=== PATIENT | male | born 1950 | race Caucasian/White ===

== ENCOUNTER → 2017-04-14 | Day surgery (SDC) | payer OTHER ==
[2017-03-19 13:28] VITALS: Ht 168.9 cm; Wt 88.6 kg
[~2017-04-14] VITALS: Ht 168.9 cm; Wt 88.6 kg
[~2017-04-14] MED LIST: LIDOCAINE HCL 2% 2 ML VIAL (20MG/ML) ONE; MIDAZOLAM HCL 1 MG/ML 2ML VIAL ONE; PROPOFOL IV EMULSION 10 MG/ML 20 ML VIAL IV ONE
--- NOTE | 2017-04-14 09:51 | Endo History and Physical ---
History & Physical Date of Service: Apr 14, 2017. Chief Complaint: Screening Referring Physician: Rodney History of Present Illness 66 yo CM who presents for screening colonoscopy. Past Surgical History Hx Cardiac Surgery: No Hx Internal Defibrillator: No Hx Pacemaker: No Hx Abdominal Surgery: No Hx of Implantable Prosthesis: No Hx Post-Op Nausea and Vomiting: No Hx Cancer Surgery: No Hx Thoracic Surgery: No Hx Orthopedic: No Hx Urinary Tract Surgery: No Family History None Social History Smoking Status: Former Smoker Hx Substance Use: No Hx Alcohol Use: Yes (OCC SOCIAL AT HOLIDAYS) Allergies Coded Allergies: No Known Allergies (Unverified , 03/19/17) Current Medications Reported Home Medications Medications Dose Route/Sig Max Daily Dose Days Date Category No Active Prescriptions or Reported Medications Rx Vital Signs Weight (Kilograms): 88.64 Height (Feet): 5 Height (Inches): 6.5 Date Time Temp Pulse Resp B/P (MAP) Pulse Ox O2 Delivery O2 Flow Rate FiO2 04/14/17 09:38 36.5 95 20 158/76 (103) 94 Room Air Physical Exam General Appearance: WD/WN, no apparent distress Respiratory/Chest: Auscultation: breath sounds normal Cardiovascular: Heart Auscultation: RRR Abdomen: Bowel Sounds: normal Inspection & Palpation: soft, non-distended, no tenderness, guarding & rebound Assessment and Plan Impression: 66 yo CM who presents for screening colonoscopy. Plan: Proceed with colonoscopy.
--- NOTE | 2017-04-14 11:09 | Discharge Instructions ---
Endoscopy Patient Instructions Date / Procedure(s) Performed Apr 14, 2017. Colonoscopy Allergy Information Coded Allergies: No Known Allergies (Unverified , 03/19/17) Discharge Date / Findings Apr 14, 2017. Normal colonoscopy Medication Instructions OK to resume all medications today as prescribed Reported Home Medications Medications Dose Route/Sig Max Daily Dose Days Date Category No Active Prescriptions or Reported Medications Rx Provider Instructions Activity Restrictions - No exercising or heavy lifting for 24 hours. - Do not drink alcohol the day of the procedure. - Do not drive a car or operate machinery until the day after the procedure. - Do not make any important decisions or sign important papers in 24 hours after the procedure. Following Day: - Return to full activity which may include returning to work/school. Diet Start your diet with liquids and light foods (jello, soup, juice, toast). Then eat your usual diet if not nauseated. Treatment For Common After Affects For mild abdominal pain, bloating, or excessive gas: - Rest - Eat lightly - Lie on right side Follow-Up Information Follow-up with Rodney as scheduled Anesthesia Information What You Should Know You have had a procedure that required some medicine to reduce anxiety and discomfort. This treatment is called moderate sedation. After receiving the treatment, you may be sleepy, but you will be able to breathe on your own. The effects of the treatment may last for several hours. Follow these instructions along with Activity/Diet recommendations noted above: * Do NOT do anything where dizziness or clumsiness would be dangerous. * Rest quietly at home today, then you can be up and about tomorrow. * Have a responsible person stay with you the rest of today. * You may have had an I.V. today. If so, you may take the dressing off later today. Recommendations Call your doctor if: * Trouble breathing * Continuous vomiting for more than 24 hours * Temperature above 101 degrees * Severe abdominal pain or bloating * Pain not relieved by pain medicine ordered * There is increased drainage or redness from any incision * A large amount of rectal bleeding greater than 2-3 tablespoons. (If you had a polyp/s removed or have hemorrhoids, a small amount of blood - from the rectum is to be expected.) * You have any unanswered questions or concerns. IN THE EVENT OF A SERIOUS EMERGENCY, GO TO THE NEAREST EMERGENCY ROOM Your discharge instructions were prepared by provider Praveen Lawler. Patient Instructions Signature Page Dawit Neal Patient (or Guardian) Signature/Date: I have read and understand the instructions given to me by my caregivers. Caregiver/RN/Doctor Signature/Date: The above-named patient and/or guardian has received patient instructions on this date. + Original Patient Signature Page (only) stays with chart. Please make copy for patient.
--- NOTE | 2017-04-14 11:15 | Anesthesiology Progress Note ---
Anesthesia Post Op Note Date & Time Apr 14, 2017 at 11:15 Vital Signs Vital Signs Past 12 Hours Date Time Temp Pulse Resp B/P (MAP) Pulse Ox O2 Delivery O2 Flow Rate FiO2 04/14/17 09:38 36.5 95 20 158/76 (103) 94 Room Air Notes Mental Status: alert / awake / arousable, participated in evaluation Pt Amnestic to Procedure: Yes Nausea / Vomiting: adequately controlled Pain: adequately controlled Airway Patency, RR, SpO2: stable & adequate BP & HR: stable & adequate Hydration State: stable & adequate Anesthetic Complications: no major complications apparent
--- NOTE | 2017-04-14 11:17 | GI REPORT ---
Procedure Date: 04/14/2017 10:49 AM Procedure: Colonoscopy Indications: Screening for colorectal malignant neoplasm Medicines: Monitored Anesthesia Care Complications: No immediate complications. Estimated Blood Loss: Estimated blood loss: none. Procedure: Pre-Anesthesia Assessment: - Prior to the procedure, a History and Physical was performed, and patient medications and allergies were reviewed. The patient's tolerance of previous anesthesia was also reviewed. The risks and benefits of the procedure and the sedation options and risks were discussed with the patient. All questions were answered, and informed consent was obtained. Prior Anticoagulants: The patient has taken no previous anticoagulant or antiplatelet agents. ASA Grade Assessment: I - A normal, healthy patient. After reviewing the risks and benefits, the patient was deemed in satisfactory condition to undergo the procedure. After I obtained informed consent, the scope was passed under direct vision. Throughout the procedure, the patient's blood pressure, pulse, and oxygen saturations were monitored continuously. The scope was introduced through the anus and advanced to the terminal ileum. The colonoscopy was performed without difficulty. The patient tolerated the procedure well. The quality of the bowel preparation was good. The terminal ileum, ileocecal valve, appendiceal orifice, and rectum were photographed. Findings: The perianal and digital rectal examinations were normal. The entire examined colon appeared normal. Impression: - The entire examined colon is normal. - No specimens collected. Recommendation: - Resume previous diet. - Continue present medications. - Repeat colonoscopy in 10 years for surveillance. - Return to primary care physician as previously scheduled. Praveen Lawler DO 04/14/2017 11:16:55 AM This report has been signed electronically. Note Initiated On: 04/14/2017 10:49 AM I attest to the content of the Intraoperative Record and orders documented therein, exceptions below
[2017-04-14 11:42] VITALS: BP 130/89; PULSE 53; O2SAT 94
== END | disposition home or self-care (01) ==
LOC: C.GI 09:18
PROVIDERS: ATTEND Internal Medicine
DX: Z12.11 Encounter for screening for malignant neoplasm of colon (principal); Z87.891 Personal history of nicotine dependence

== ENCOUNTER → 2017-07-18 | Outpatient (CLI) | payer OTHER | END | disposition home or self-care (01) | LOC: C.LABPBG 07:46 | PROVIDERS: ATTEND Family Medicine | DX: Z00.00 Encounter for general adult medical examination without abnormal findings (principal); Z11.59 Encounter for screening for other viral diseases ==

== ENCOUNTER 2024-11-03 16:19 | Observation (INO) ==
--- NOTE | 2024-11-03 16:35 | Emergency Department Note ---
Impression & Plan Dizziness, Ataxia ED Provider Note NAME: CHAUNCEY FRENCH AGE: 74 SEX: M : 1950 ARRIVES VIA: Walk-In INFORMANT: Patient, ED PROVIDER(S): Marito Jewell DO CHIEF COMPLAINT: Dizziness HPI: The patient is a 74-year-old male who presented to the emergency department the request of primary care physician for an evaluation of dizziness. Patient started having issues yesterday with dizziness. He feels off balance. He feels that things are moving as well. He denies having any headache or unilateral weakness. He denies having any trauma. The patient states has been compliant with his outpatient medications. He denies having any fevers or chills. ROS: See above HPI for pertinent positives & negatives. A total of 10 systems reviewed and were otherwise negative. PAST MEDICAL HISTORY: See Below PAST SURGICAL HISTORY: See Below FAMILY HISTORY: See Below SOCIAL HISTORY: See Below HOME MEDICATIONS: See Below ALLERGIES: See Below VITALS: See Below PHYSICAL EXAMINATION: GENERAL: Patient is awake alert in no acute distress patient is resting comfortably and showing no signs of anxiety EYES: The conjunctivae are clear. The pupils are round and reactive. EARS, NOSE, MOUTH AND THROAT: The nose is without any evidence of any deformity. NECK: The neck is nontender and supple. RESPIRATORY: Normal respiratory effort is noted there is no evidence of wheezing rhonchi or rales CARDIOVASCULAR: Regular rate and rhythm noted there no murmurs rubs or gallops normal S1 normal S2. GASTROINTESTINAL: The abdomen is soft. Abdomen is nontender. MUSCULOSKELETAL/EXTREMITIES: There is no evidence of gross deformity full range of motion is noted in the hips and shoulders. SKIN: There is no obvious evidence of any rash. There are no petechiae, pallor or cyanosis noted. NEUROLOGIC: Patient is awake alert and oriented x3 strength is symmetric patellar reflexes are 2+ bilaterally MEDICAL DECISION MAKING: The patient is a 74-year-old male who presented to the emergency department for an evaluation of dizziness. The patient was seen by his primary care physician and sent to the emergency department for further evaluation. The patient did not have any focal neurologic deficits but on ambulation he did have instability. I discussed patient's laboratory and radiographic studies with him. I discussed possible causes of this which could include central nervous system causes as well as peripheral causes. Ultimately the patient was not found to have any acute process on CT or CT angiography other than a possible small aneurysm which I do not feel is consistent with the patient's symptoms. He may require further workup for this and I discussed this with him. Ultimately the patient was able to ambulate but had instability. He was not comfortably discharged home. This reason I discussed his condition with the on- call [facility] hospitalist. Triage Nursing notes reviewed. Prior medical records reviewed Vital Signs: reviewed and remarkable for elevated blood pressure. Differential diagnosis: Benign positional vertigo, dehydration, hypovolemia, anemia, tumor, infection, hypoglycemia, electrolyte abnormalities, cardiac sources, intracerebral event, toxicologic, neurologic, as well as other pathologies. ER treatment provided: See below Diagnostics interpreted by me: ECG: EKG was obtained in the emergency department. My interpretation is normal sinus rhythm at 70 bpm. There is no ectopy. There was no acute ST segment abnormalities noted. This was compared to a tracing from February 01, 2022. No changes were noted. Cardiac Monitoring: An order was placed for continuous cardiac monitoring. The monitor shows a rate of 60 bpm with sinus rhythm. Laboratory studies: As stated above and show below. Imaging studies: See below. Radiographic imaging was reviewed by myself Consultation(s): Dr. Sims was notified about the patient. She will evaluate the patient in the emergency department for further management and disposition. Past Med/Surg History Problem List (Updated 11/03/24 @ 20:13 by Marito Jewell DO) Ataxia (Acute) Dizziness (Acute) Urinary hesitancy Prostate cancer (Chronic 04/26/22) Dyslipidemia (Chronic) Family history of coronary artery disease (Chronic) Former smoker (Chronic) Hypertension (Chronic) Spermatocele of epididymis, multiple COPD (chronic obstructive pulmonary disease) Situational depression (Chronic) Elevated PSA (Chronic) Medical History Spermatocele Arthritis Dyslipidemia Essential hypertension Surgical History History of hydrocelectomy 02/11/22 H/O prostate biopsy History of colonoscopy History of tooth extraction S/P tonsillectomy Family History Father Myocardial infarction Brother Prostate cancer Coronary heart disease Other No family history of adverse response to anesthesia Denies family history of Ovarian cancer Breast cancer Colorectal cancer Social History Smoking Status: Former smoker Tobacco Type: Cigarettes Age Started Using Tobacco: 22; Age Quit Using Tobacco: 64; packs per day: 0.5; Cigarettes Per Day: 20; Second Hand Exposure: Yes (CURRENT/ SMOKES); Do You Dip or Chew Tobacco: Yes (uses 2x a week ); Hx Alcohol Use: No (socially ) Hx Substance Use: No Preferred Language: Argentine Communication Ability: Effective Visual Impairment: No Limitations Hearing Ability: Normal Mixing Picker Tender Required: No Beliefs That Will Affect Care: None marital status: Current Living Situation: Spouse current occupational status: employed 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 [employer] How many Children do You have: 2 Feels Safe at Home: Yes Childhood Exposure to Second-Hand Smoke: No Diet: regular caffeine: Yes during the past year weight has: remained stable Dental Care, Regularly: No Physical Activity Frequency: Daily Seatbelt Use: always Sunscreen Use: No Assistive Devices: Denture - Upper, Denture - Lower and Glasses Allergies Allergies Allergy/AdvReac Type Severity Reaction Status Date / Time No Known Drug Allergies Allergy Verified 11/03/24 15:24 Home Meds Home Medications Medication Instructions Recorded Confirmed calcium carbonate 260 mg PO DAILY 07/19/22 11/03/24 cholecalciferol (vitamin D3) 25 25 mcg PO DAILY 07/19/22 11/03/24 mcg (1,000 unit) capsule Previous Rx's Medication Instructions Recorded citalopram 40 mg tablet 40 mg PO DAILY #90 tabs 03/17/24 atorvastatin 40 mg tablet (Lipitor) 40 mg PO QPM #90 tabs 05/26/24 losartan 100 mg tablet See Rx Instructions .Route 06/24/24 .COMPLEX #90 tabs umeclidinium 62.5 mcg/actuation See Rx Instructions .Route 08/15/24 blister powder for inhalation .COMPLEX #90 ea (Incruse Ellipta) Results & Data (ED) Vital Signs Vital Signs - 24 hr 11/03/24 16:26 11/03/24 16:26 11/03/24 16:32 Temperature 36.6 C Temperature Source Oral Pulse Rate 70 Pulse Rate [Apical] 69 Respiratory Rate 25 H 14 Respiratory Effort / Characteristics Non-Labored Spontaneous Non-Labored Spontaneous Respiratory Depth Normal Normal Blood Pressure 149/75 H Blood Pressure [Left Arm] 138/79 Blood Pressure Mean 99 Blood Pressure Mean [Left Arm] 98 Blood Pressure Position [Left Arm] Semi-fowlers Pulse Oximetry 93 93 94 Oxygen Delivery Method Room Air Room Air Room Air Sepsis Recent Fever Within 48 Hours No Sepsis New/Unexplained Change in Mental Status N/A Sepsis Action Taken by Nursing No Action Required 11/03/24 16:41 11/03/24 18:00 11/03/24 18:34 Temperature Temperature Source Pulse Rate 69 Pulse Rate [Apical] 63 68 Respiratory Rate 19 19 Respiratory Effort / Characteristics Non-Labored Spontaneous Non-Labored Spontaneous Respiratory Depth Normal Normal Blood Pressure Blood Pressure [Left Arm] 159/92 H 158/87 H Blood Pressure Mean Blood Pressure Mean [Left Arm] 114 110 Blood Pressure Position [Left Arm] Semi-fowlers Semi-fowlers Pulse Oximetry 90 96 Oxygen Delivery Method Room Air Room Air Sepsis Recent Fever Within 48 Hours Sepsis New/Unexplained Change in Mental Status Sepsis Action Taken by Detention Medications Current Medication List: was personally reviewed by me Laboratory Data Attestation: I reviewed the patient's lab results. 11/03/24 16:33 11/03/24 16:33 Lab Results 11/03/24 Range/Units 16:33 WBC 10.51 (4.8-10.8) K/ul RBC 5.50 (4.70-6.10) M/uL Hgb 14.7 (14.0-18.0) g/dl Hct 45.4 (42.0-52.0) % MCV 82.5 (80.0-100.0) fL MCH 26.7 (25.0-34.0) pg MCHC 32.4 (32.0-36.0) g/dL RDW Std Deviation 42.3 (36.4-46.3) fL RDW Coeff of Praveen 14.2 (11.5-14.5) % Plt Count 274 (130-400) K/uL MPV 10.0 (9.4-12.4) fL Immature Gran % (Auto) 2.9 % Neut % (Auto) 64.2 % Lymph % (Auto) 18.3 % Esmeralda % (Auto) 10.0 % Eos % (Auto) 3.6 % Baso % (Auto) 1.0 % Neut # (Auto) 6.75 H (1.40-6.50) K/uL Lymph # (Auto) 1.92 (1.20-3.40) K/uL Esmeralda # (Auto) 1.05 H (0.11-0.59) K/uL Eos # (Auto) 0.38 (0.00-0.50) K/uL Baso # (Auto) 0.10 (0.00-0.20) K/uL Immature Gran # (Auto) 0.31 H (0.01-0.20) K/uL PT 10.5 (9.0-12.0) Seconds INR 1.0 (0.9-1.1) APTT 29 (21-31) Seconds PTT Ratio 1.1 Sodium 138 (136-145) mmol/L Potassium 4.1 (3.5-5.1) mmol/L Chloride 107 (98-107) mmol/L Carbon Dioxide 24 (21-32) mmol/L Anion Gap 7 (3-11) BUN 17 (6-23) mg/dl Creatinine 0.93 (0.6-1.4) mg/dl Est Cr Clr Drug Dosing 74.3 ml/min eGFR 86.70 BUN/Creatinine Ratio 18.3 (10-20) Glucose 103 H (70-99(Fasting)) mg/dl Calcium 9.0 (8.6-10.3) mg/dl Magnesium 2.0 (1.7-2.4) mg/dl Total Bilirubin 0.4 (0.2-1.0) mg/dl AST 15 (13-39) U/L ALT 10 (7-52) U/L Alkaline Phosphatase 89 (34-104) U/L Troponin I High Sens 4.5 (0-20) pg/ml Total Protein 6.8 (6.0-8.3) gm/dl Albumin 3.9 (3.4-5.0) gm/dl Globulin 2.9 (2.5-4.0) gm/dl Albumin/Globulin Ratio 1.3 (0.9-2) Administered Medications Discontinued Medications Ioversol (Optiray 320 125ml) 115 ml IV ONCE ONE Stop: 11/03/24 17:20 Last Admin: 11/03/24 17:19 Dose: 115 ml Documented By: ALEXANDRIA Meclizine HCl (Meclizine Hcl 25 Mg Tab) 25 mg PO NOW STA Stop: 11/03/24 18:25 Last Admin: 11/03/24 18:33 Dose: 25 mg Documented By: RANDI Imaging Data Attestation: I personally reviewed and interpreted this imaging study as follows: My Impression: 1 view chest x-ray was obtained in the emergency department. My interpretation is no free air or definite infiltrate, final report below. Radiologist's Impression: Chest X-Ray 11/03/24 16:32 EXAM: Portable AP chest radiograph TECHNIQUE: AP portable radiograph of the chest was obtained. INDICATION: Shortness of breath Comparison: None FINDINGS: LINES and TUBES: None CARDIOVASCULAR: Cardiac silhouette is mildly enlarged in size. LUNGS/PLEURA: No focal consolidation identified. Chronic interstitial lung changes. No significant pleural fluid. No discernible pneumothorax. OSSEOUS/OTHER: No displaced acute osseous process identified. IMPRESSION: Mild cardiac silhouette enlargement. Otherwise no significant cardiopulmonary process identified. Electronically signed by Robel Romero 11-03-2024 5:[address] 11/03/24 16:32 Clinical History: Dizziness Technique: Axial computed tomography images were obtained of the brain from the vertex to the skull base without intravenous contrast. Findings: There is no sign of intracranial hemorrhage. There is normal valentine-white matter differentiation with no sign of acute or old infarction. No midline shift or other form of herniation is identified. There is no hydrocephalus. No obvious mass lesion is seen on this noncontrast examination. The visualized portions of the orbits and paranasal sinuses appear unremarkable. 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 No definite stenosis is seen of the anterior, middle, or posterior cerebral artery circulations. Posterior communicating arteries are present bilaterally, right larger than left. The visualized vertebral arteries and the basilar artery appear unremarkable Impression: 1. 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 Conventional angiography could be considered for confirmation 2. No definite stenosis of the intracranial arteries Electronically signed by Tomas Coley 11-03-2024 5:45 PM Neck CTA 11/03/24 16:32 Technique: Axial computed tomography images were obtained of the neck after the administration of intravenous contrast according to the CT angiogram protocol Findings: No stenosis is seen in the common carotid arteries bilaterally. There is plaque within the carotid bulbs bilaterally, without significant stenosis. There are mild stenoses of the proximal internal carotid arteries bilaterally, with 30-40% diameter narrowing. There is mild plaque in the proximal left external carotid artery, without significant stenosis The vertebral arteries are patent bilaterally with no significant stenosis seen. 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 Electronically signed by Tomas Coley 11-03-2024 5:50 PM Discharge Plan Visit Data Chief Complaint: Dizziness Stated Complaint: DIZZINESS ED Provider: Marito Jewell Discharge Problem: Dizziness, Ataxia Patient Disposition: Being Evaluated by Hospitalist Condition: Fair Forms Stand Alone Forms: [facility] Prescriptions Prescriptions: No Action citalopram 40 mg tablet 40 mg PO DAILY Qty: 90 3RF atorvastatin [Lipitor] 40 mg tablet 40 mg PO QPM Qty: 90 3RF Incruse Ellipta 62.5 mcg/actuation blister with device See Rx Instructions .ROUTE .COMPLEX Qty: 90 3RF Dose Instruction: 1 INHALATION INHALED DAILY Rx Instructions: 1 INHALATION INHALED DAILY cholecalciferol (vitamin D3) 25 mcg (1,000 unit) capsule 25 mcg PO DAILY calcium carbonate 260 mg calcium (648 mg) tablet 260 mg PO DAILY losartan 100 mg tablet See Rx Instructions .ROUTE .COMPLEX Qty: 90 3RF Dose Instruction: TAKE 1 TABLET BY MOUTH EVERY DAY Rx Instructions: TAKE 1 TABLET BY MOUTH EVERY DAY Referrals Referrals: Sahara Stevens MD [Primary Care Provider] -
[2024-11-03 16:54] LABS: Hematocrit (blood only) 45.4 % (42.0-52.0); Hemoglobin 14.7 g/dl (14.0-18.0); Immature Granulocytes # (auto) 0.31 K/uL (0.01-0.20); Immature Granulocytes % (auto) 2.9 %; Mean Corpuscular Hemoglobin 26.7 pg (25.0-34.0); Mean Corpuscular Volume 82.5 fL (80.0-100.0); Platelet Count 274 K/uL (130-400); RDW Standard Deviation 42.3 fL (36.4-46.3); Red Blood Count 5.50 M/uL (4.70-6.10); White Blood Count 10.51 K/ul (4.8-10.8)
[2024-11-03 17:14] LABS: Alanine Aminotransferase 10.0 U/L (7-52); Albumin Globulin Ratio 1.3 (0.9-2); Alkaline Phosphatase 89.0 U/L (34-104); Anion Gap 7.0 (3-11); Bilirubin,Total 0.4 mg/dl (0.2-1.0); Blood Urea Nitrogen 17.0 mg/dl (6-23); Calcium 9.0 mg/dl (8.6-10.3); Carbon Dioxide 24.0 mmol/L (21-32); Chloride 107.0 mmol/L (98-107); Creatinine Clr Calc Pharmacy 74.3 ml/min; Globulin 2.9 gm/dl (2.5-4.0); Glucose 103.0 mg/dl (70-99(Fasting)); Magnesium 2.0 mg/dl (1.7-2.4); Potassium 4.1 mmol/L (3.5-5.1); Sodium 138.0 mmol/L (136-145); Total Protein 6.8 gm/dl (6.0-8.3)
[2024-11-03] MEDS: OPTIRAY 320 125ml IV ONE (17:19)
[2024-11-03 17:25] LABS: INR 1.0 (0.9-1.1); Partial Thromboplastin Time 29 Seconds (21-31); Prothrombin Time 10.5 Seconds (9.0-12.0)
--- NOTE | 2024-11-03 17:31 | XRay Report ---
EXAM: Portable AP chest radiograph TECHNIQUE: AP portable radiograph of the chest was obtained. INDICATION: Shortness of breath Comparison: None FINDINGS: LINES and TUBES: None CARDIOVASCULAR: Cardiac silhouette is mildly enlarged in size. LUNGS/PLEURA: No focal consolidation identified. Chronic interstitial lung changes. No significant pleural fluid. No discernible pneumothorax. OSSEOUS/OTHER: No displaced acute osseous process identified. IMPRESSION: Mild cardiac silhouette enlargement. Otherwise no significant cardiopulmonary process identified. Electronically signed by Robel Romero 11-03-2024 5:30 PM
--- NOTE | 2024-11-03 17:41 | CT Scan Report ---
Clinical History: Dizziness Technique: Axial computed tomography images were obtained of the brain from the vertex to the skull base without intravenous contrast. Findings: There is no sign of intracranial hemorrhage. There is normal valentine-white matter differentiation with no sign of acute or old infarction. No midline shift or other form of herniation is identified. There is no hydrocephalus. No obvious mass lesion is seen on this noncontrast examination. The visualized portions of the orbits and paranasal sinuses appear unremarkable. The mastoid air cells appear clear Impression: Unremarkable noncontrast CT of the brain Electronically signed by Tomas Coley 11-03-2024 5:41 PM
--- NOTE | 2024-11-03 17:46 | CT Scan Report ---
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 No definite stenosis is seen of the anterior, middle, or posterior cerebral artery circulations. Posterior communicating arteries are present bilaterally, right larger than left. The visualized vertebral arteries and the basilar artery appear unremarkable Impression: 1. 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 Conventional angiography could be considered for confirmation 2. No definite stenosis of the intracranial arteries Electronically signed by Tomas Coley 11-03-2024 5:45 PM
--- NOTE | 2024-11-03 17:51 | CT Scan Report ---
Technique: Axial computed tomography images were obtained of the neck after the administration of intravenous contrast according to the CT angiogram protocol Findings: No stenosis is seen in the common carotid arteries bilaterally. There is plaque within the carotid bulbs bilaterally, without significant stenosis. There are mild stenoses of the proximal internal carotid arteries bilaterally, with 30-40% diameter narrowing. There is mild plaque in the proximal left external carotid artery, without significant stenosis The vertebral arteries are patent bilaterally with no significant stenosis seen. 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 Electronically signed by Tomas Coley 11-03-2024 5:50 PM
[2024-11-03] MEDS: MECLIZINE HCL 25 MG TAB PO STA (18:33)
--- NOTE | 2024-11-03 19:32 | History & Physical Report ---
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 in ED. 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 No neuro deficits, no h/o this happening before. No falls. Pt was made aware of the 3mm brain aneurysm identified on head CTA at time of admission. No h/o arrythmia. R/o CVA. - CBC without leukocytosis, stable H&H; CMP grossly unremarkable; Mg 2.0; Trop 4.5- CBC, BMP am - TSH pending - Lipid panel am; On atorvastatin 40mg -- continue - EKG NSR @ 70 bpm - CXR mild cardiac silhouette enlargement - Head CT unremarkable - Head CTA suspected small 3 mm aneurysm of MCA branch L orbital apex and L te mporal lobe - Neck CTA mild stenosis of proximal ICA bilaterally - Echo 2018 - pending repeat - MRI w/ and w/o contrast pending (h/o prostate CA) - Consider PT/OT consult - Consider neuro consult pending MRI #HTN- Will allow some permissive HTN but control to ~ SBP < 160, pending MRI; Losartan - continue #HLD- Pending lipids am; Atorvastatin - continue #COPD- Previous smoker, quit at 64 y/o; O2 prn; Incruse Ellipta - continue #Prostate CA- Bx confirmed dx 2022, s/p radiation; follows with urology and oncology; No LUTS at admission. #Situational depression- Stable mood; Citalopram - continue Lindsay () - [phone] Dispo: Obs, PCU VTE Prophylaxis: SCDs This document was dictated utilizing [email or web address]. Please excuse any grammatical errors that may be secondary to use of this software. 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 He had walked to his kitchen and when he bent down to grab orange juice from the fridge, he suddenly felt like the fridge was falling towards him. He was able to get himself to a normal standing position and sit down, recovering from this episode within a few minutes. He took his daily medications and then went to work that day. The only other symptom he experienced throughout the day was some lightheadedness at times, but this had resolved by the time he was home and he felt back to normal health by the evening. The morning of arrival, he was in bed when he felt lightheaded and dizzy. He went to stand up and his symptoms worsened. After he started walking the symptoms subsided slightly, but were still present. He describes the feeling as being "off balanced" and not as if the room is spinning. He also was experien cing lightheadedness, specifically when walking or going from sitting to walking. The symptoms have not completely resolved as they had the day prior. His , Lindsay, states that at one point he felt that his "brain would not tell his legs what to do." He denies any extremity weakness, numbness, or tingling. He has a generalized feeling of weakness starting today. Denies headache, vision changes, slurred speech, facial droop, or difficulties with finding words. He is not leaning to one side more than the other. No tinnitus or recent URI symptoms. He does experience cough and minimal phlegm production at his baseline, and has a history of COPD. He denies recent tick bites or exposures. Denies chest pain, SOB, palpitations, abdominal pain, N/V/D/C, LUTS, URI symptoms, numbness/tingling, F/C, syncope, or falls. He has never had this happen before. No known history of Afib/Aflutter. Notes that his mother has a history of a brain aneurysm. His notes that the paitent's blood pressures are usually 110s/80s, but that they have been more elevated today. He took all of his am medications. Has not eaten more than a few crackers today. 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 in ED. Please see Dr. Sims's attestation for adjustments/additions to treatment plan. Allergies Allergy/AdvReac Type Severity Reaction Status Date / Time No Known Drug Allergies Allergy . Verified 11/03/24 20:20 Home Medications Medication Instructions Recorded Confirmed Type citalopram 40 mg tablet 40 mg PO DAILY #90 tabs 03/17/24 11/03/24 Rx atorvastatin 40 mg tablet (Lipitor) 40 mg PO QPM #90 tabs 05/26/24 11/03/24 Rx calcium carbonate (Calcium 600) 600 mg PO QAM 11/03/24 11/03/24 History cholecalciferol (vitamin D3) 50 50 mcg PO QAM 11/03/24 11/03/24 History mcg (2,000 unit) tablet losartan 100 mg tablet 100 mg PO QAM 11/03/24 11/03/24 History umeclidinium 62.5 mcg/actuation 1 inh inhalation DAILY 11/03/24 11/03/24 History blister powder for inhalation (Incruse Ellipta) Past Med/Surg History Problem List Ataxia (Acute) Dizziness (Acute) Urinary hesitancy Prostate cancer (Chronic 04/26/22) Dyslipidemia (Chronic) Family history of coronary artery disease (Chronic) Former smoker (Chronic) Hypertension (Chronic) Spermatocele of epididymis, multiple COPD (chronic obstructive pulmonary disease) Situational depression (Chronic) Elevated PSA (Chronic) Medical History Spermatocele Arthritis Dyslipidemia Essential hypertension Surgical History History of hydrocelectomy 02/11/22 H/O prostate biopsy History of colonoscopy History of tooth extraction S/P tonsillectomy Family History Father Myocardial infarction Brother Prostate cancer Coronary heart disease Other No family history of adverse response to anesthesia Denies family history of Ovarian cancer Breast cancer Colorectal cancer Social History Smoking Status: Former smoker Tobacco Type: Cigarettes Age Started Using Tobacco: 22; Age Quit Using Tobacco: 64; packs per day: 0.5; Cigarettes Per Day: 20; Second Hand Exposure: Yes (CURRENT/ SMOKES); Do You Dip or Chew Tobacco: Yes (uses 2x a week ); Hx Alcohol Use: No (socially ) Hx Substance Use: No Preferred Language: Bermudian Communication Ability: Effective Visual Impairment: No Limitations Hearing Ability: Normal Bundle Tier Required: No Beliefs That Will Affect Care: None marital status: Current Living Situation: Spouse current occupational status: employed 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 [employer] How many Children do You have: 2 Feels Safe at Home: Yes Childhood Exposure to Second-Hand Smoke: No Diet: regular caffeine: Yes during the past year weight has: remained stable Dental Care, Regularly: No Physical Activity Frequency: Daily Seatbelt Use: always Sunscreen Use: No Assistive Devices: Denture - Upper, Denture - Lower and Glasses Review of Systems Review of Systems: All systems reviewed & are unremarkable except as noted in Subjective Physical Exam Physical Exam: General: No acute distress Skin: Warm and dry Head: Normocephalic, atraumatic Eyes: PERRL, conjunctivae clear, sclera non-icteric; wearing glasses ENT: External ear and ear canal without swelling; nose atraumatic; good dentition, tongue normal appearance, pharynx normal Neck: Supple, no LAD Cardio: RRR, no M/G/R, S1 and S2 normal Resp: No respiratory distress, Lungs CTA in all lobes bilaterally, no wheezes, rales, or rhonchi Abdomen: Soft, symmetric, nontender; No masses or hepatosplenomegaly; Bowel sounds normoactive MSK: No deformities; pulses palpable and equal; no edema. Neuro: II- PERRL, no VF deficits III, IV, - EOMs intact, no deviation, no nystagmus V- Normal sensation in all locations VII- No asymmetry, no nasolabial fold flattening VIII- Normal hearing to speech IX, X- Normal palatal elevation, no ulnar deviation XI- 5/5 head turn + shoulder shrug bilaterally XII- Midline tongue protrusion Motor: 5/5 strength throughout BUE/BLE; no pronator drift Reflexes: WNL throughout, no clonus Sensory: Normal sensation throughout, no hemineglect Coordination: Normal [id number], no tremor Gait: Unable to asses at admission Psych: Appropriate mood and affect; good judgement and insight. , Lindsay, is present in room at time of visit. Results & Data Results & Data Vital Signs (Past 12 Hours) Vital Signs Temp Pulse Pulse Resp BP BP Pulse Ox 11/03/24 18:34 68 19 158/87 H 96 11/03/24 18:00 63 19 159/92 H 90 11/03/24 16:41 69 11/03/24 16:32 69 14 138/79 94 11/03/24 16:26 93 11/03/24 16:26 36.6 C 70 25 H 149/75 H 93 O2 Del Method 11/03/24 18:34 Room Air 11/03/24 18:00 Room Air 11/03/24 16:41 11/03/24 16:32 Room Air 11/03/24 16:26 Room Air 11/03/24 16:26 Room Air Laboratory Results 11/03/24 16:33 WBC 10.51 RBC 5.50 Hgb 14.7 Hct 45.4 MCV 82.5 MCH 26.7 MCHC 32.4 RDW Std Deviation 42.3 RDW Coeff of Praveen 14.2 Plt Count 274 MPV 10.0 Immature Gran % (Auto) 2.9 Neut % (Auto) 64.2 Lymph % (Auto) 18.3 Pitt % (Auto) 10.0 Eos % (Auto) 3.6 Baso % (Auto) 1.0 Neut # (Auto) 6.75 H Lymph # (Auto) 1.92 Pitt # (Auto) 1.05 H Eos # (Auto) 0.38 Baso # (Auto) 0.10 Immature Gran # (Auto) 0.31 H PT 10.5 INR 1.0 APTT 29 PTT Ratio 1.1 Sodium 138 Potassium 4.1 Chloride 107 Carbon Dioxide 24 Anion Gap 7 BUN 17 Creatinine 0.93 Est Cr Clr Drug Dosing 74.3 eGFR 86.70 BUN/Creatinine Ratio 18.3 Glucose 103 H Calcium 9.0 Magnesium 2.0 Total Bilirubin 0.4 AST 15 ALT 10 Alkaline Phosphatase 89 Troponin I High Sens 4.5 Total Protein 6.8 Albumin 3.9 Globulin 2.9 Albumin/Globulin Ratio 1.3 Diagnostic Findings Chest X-Ray 11/03/24 16:32 EXAM: Portable AP chest radiograph TECHNIQUE: AP portable radiograph of the chest was obtained. INDICATION: Shortness of breath Comparison: None FINDINGS: LINES and TUBES: None CARDIOVASCULAR: Cardiac silhouette is mildly enlarged in size. LUNGS/PLEURA: No focal consolidation identified. Chronic interstitial lung changes. No significant pleural fluid. No discernible pneumothorax. OSSEOUS/OTHER: No displaced acute osseous process identified. IMPRESSION: Mild cardiac silhouette enlargement. Otherwise no significant cardiopulmonary process identified. Electronically signed by Robel Romero 11-03-2024 5:[address] 11/03/24 16:32 Clinical History: Dizziness Technique: Axial computed tomography images were obtained of the brain from the vertex to the skull base without intravenous contrast. Findings: There is no sign of intracranial hemorrhage. There is normal valentine-white matter differentiation with no sign of acute or old infarction. No midline shift or other form of herniation is identified. There is no hydrocephalus. No obvious mass lesion is seen on this noncontrast examination. The visualized portions of the orbits and paranasal sinuses appear unremarkable. 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 No definite stenosis is seen of the anterior, middle, or posterior cerebral artery circulations. Posterior communicating arteries are present bilaterally, right larger than left. The visualized vertebral arteries and the basilar artery appear unremarkable Impression: 1. 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 Conventional angiography could be considered for confirmation 2. No definite stenosis of the intracranial arteries Electronically signed by Tomas Coley 11-03-2024 5:45 PM Neck CTA 11/03/24 16:32 Technique: Axial computed tomography images were obtained of the neck after the administration of intravenous contrast according to the CT angiogram protocol Findings: No stenosis is seen in the common carotid arteries bilaterally. There is plaque within the carotid bulbs bilaterally, without significant stenosis. There are mild stenoses of the proximal internal carotid arteries bilaterally, with 30-40% diameter narrowing. There is mild plaque in the proximal left external carotid artery, without significant stenosis The vertebral arteries are patent bilaterally with no significant stenosis seen. 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 Electronically signed by Tomas Coley 11-03-2024 5:50 PM Medications Administered Meclizine 25 mg p.o. ECG Additional Comments: NSR 70 bpm, PA 152, QRS 78, QT/QTc 426/460, PRT 34/-12/15 Code Status & VTE Plan Code Status Full Supervising Physician Co-Signing Physician Notes Patient seen and examined in room 239-2, chart reviewed, case discussed with JABIER Lieberman and I agree with the assessment and plan as above. Patient is a 74yo male with history of HTN, COPD, HLP and Prostate cancer presenting with dizziness that started prior to arrival. On exam he is afebrile, mildly hypertensive otherwise HD stable Skin - no rash HEENT - MMM, neck supple Heart - +S1/S2, regular, no m/r/g Lungs - CTA anteriorly Abd - soft, NT/ND Ext - no edema Neuro - no focal deficits, no nystagmus appreciated, no corrective saccade, negative test of skew Labs and images reviewed CTA with small aneurysm 3mm noted at MCA - patient with no prior history Assessment/Plan -MRI ordered to assess for possible CVA -Check 2D echo -PT/OT evaluation -BP control -Serial followup for small aneurysm -Remainder as above PG Care Time/CCT Total # of Minutes Spent Total Time Spent with Patient: Total time spent is greater than 50% in coordination of care (as documented) at patient's floor/unit and/or counseling patient: Coding Level of Care Code 18777 INT INP/OBS CARE MIN Diagnoses Dizziness R42
[2024-11-03] MEDS ORDERED: POLYETHYLENE (MIRALAX) 17 GM PACK PO PRN (20:57)
[2024-11-03] MEDS ORDERED: ONDANSETRON INJ 2 MG/ML 2 ML VIAL IV PRN (20:57)
[2024-11-03] MEDS ORDERED: MELATONIN 3 MG TAB PO PRN (20:57)
[2024-11-03 21:24] LABS: Thyroid Stimulating Hormone 1.309 uIu/ml (0.300-4.500)
[2024-11-03] MEDS: GADOBUTROL 65ML VIAL IV ONE (21:53)
[2024-11-03] MEDS: ATORVASTATIN 40 MG TAB PO SCH (21:59)
--- NOTE | 2024-11-03 23:27 | Magnetic Resonance Report ---
Exam(s): MRI HEAD W/WO Contrast EXAM: MR Head Without and With Intravenous Contrast CLINICAL HISTORY: Reason for exam: Dizziness. TECHNIQUE: Magnetic resonance images of the head/brain without and with intravenous contrast in multiple planes. CONTRAST: Contrast must be dictated COMPARISON: CT head: 11/03/2024 FINDINGS: Brain: There is no restricted diffusion to suggest acute infarction/acute ischemia. There is no intraparenchymal mass, mass- effect or midline shift of structures noted. No abnormal intracranial enhancement. No abnormal extra-axial fluid collections are seen. Age-related mild/moderate cerebral atrophy with widening of the extra- axial spaces and ventricular dilatation. FLAIR imaging demonstrates scattered subcortical multifocal/periventricular signal hyperintensity, commonly seen with increasing age and nonspecific. Typically attributes to sequela of chronic microvascular disease. No ventriculomegaly. The basal cisterns are patent. Normal void signal is present within the intracranial carotid and basilar arteries. No tonsillar ectopia. Bones/joints: Grossly unremarkable.. Sinuses: Unremarkable as visualized. . Mastoid air cells: No evidence of active disease. Orbits: Unremarkable as visualized. IMPRESSION: No evidence of acute infarction, hemorrhage or enhancing intracranial mass. Nonspecific benign appearing white matter changes are likely related to chronic small vessel ischemic disease/age related white matter degeneration. . Electronically signed by: Saleem Garcia MD, CYRUSR 11/03/24 23:26 PM
[2024-11-04 07:48] LABS: Cholesterol 136.0 mg/dl (0-200); HDL Cholesterol 38.0 mg/dl; Triglycerides 112.0 mg/dl (0-150)
[2024-11-04] MEDS: CHOLECALCIFEROL 25 MCG (1000 UNITS) TAB PO SCH (08:29)
[2024-11-04] MEDS: CITALOPRAM 40 MG TAB PO SCH (08:30)
[2024-11-04] MEDS: LOSARTAN POTASSIUM 50 MG TAB PO SCH (08:30)
[2024-11-04] MEDS: CALCIUM CARBONATE 1250MG TAB PO SCH (08:30)
[2024-11-04] MEDS: UMECLIDINIUM BROMIDE 62.5MCG/BLISTER 7 PUFFS/INHALER INH SCH (08:31)
--- NOTE | 2024-11-04 09:52 | XCELERA ---
[id number] \\[id number]
--- NOTE | 2024-11-04 11:40 | Electrocardiogram Report ---
Test Reason : Blood Pressure : */* mmHG Vent. Rate : 70 BPM Atrial Rate : 70 BPM P-R Int : 152 ms QRS Dur : 78 ms QT Int : 426 ms P-R-T Axes : 34 -12 15 degrees QTcB Int : 460 ms Normal sinus rhythm possible Inferior infarct , age undetermined Abnormal ECG Confirmed by Tito Valdes ([id number]) on 11/04/2024 11:40:11 AM Referred By: REFERRED SELF Confirmed By: Tito Valdes
[2024-11-04 16:34] VITALS: BP 146/76; PULSE 76; RESP 18; TEMP 97.5; O2SAT 91
--- NOTE | 2024-11-04 17:19 | Discharge Summary ---
Discharge Summary Date of Service November 04, 2024 Principal Dx & Hospital Course #1 = Principal Diagnosis (1) Dizziness: Plan 74-year-old male PMHx COPD, HTN, dyslipidemia, prostate cancer, and situational depression presenting for dizziness starting day [employer]. 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 in ED. #Dizziness Symptoms starting day [employer]; described as feeling off balance, worse with walking. No neuro deficits, no h/o this happening before. No falls. Pt was made aware of the 3mm brain aneurysm identified on head CTA at time of admission. No h/o arrythmia. R/o CVA. - CBC without leukocytosis, stable H&H; CMP grossly unremarkable; Mg 2.0; Trop 4.5- CBC, BMP am - CXR mild cardiac silhouette enlargement - Head CT unremarkable - Head CTA suspected small 3 mm aneurysm of MCA branch L orbital apex and L temporal lobe - Neck CTA mild stenosis of proximal ICA bilaterally - Echo 2018 - pending repeat - MRI brain negative for stroke -likely viral inner ear pathology or BPPV. -patient is agreeable to discharge. Patient will followup with Neurosurgery for incidental finding of 3 mm brain aneurysm #HTN- Will allow some permissive HTN but control to ~ SBP < 160, pending MRI; Losartan - continue #HLD- Atorvastatin - continue #COPD- Previous smoker, quit at 64 y/o; O2 prn; Incruse Ellipta - continue #Prostate CA- Bx confirmed dx 2022, s/p radiation; follows with urology and oncology; No LUTS at admission. #Situational depression- Stable mood; Citalopram - continue Admission HPI Per Admitting Provider 74-year-old male PMHx COPD, HTN, dyslipidemia, prostate cancer, and situational depression presenting for dizziness starting day [employer]. Pt states that the morning [employer] he woke up in normal health. He had walked to his kitchen and when he bent down to grab orange juice from the fridge, he suddenly felt like the fridge was falling towards him. He was able to get himself to a normal standing position and sit down, recovering from this episode within a few minutes. He took his daily medications and then went to work that day. The only other symptom he experienced throughout the day was some lightheadedness at times, but this had resolved by the time he was home and he felt back to normal health by the evening. The morning of arrival, he was in bed when he felt lightheaded and dizzy. He went to stand up and his symptoms worsened. After he started walking the symptoms subsided slightly, but were still present. He describes the feeling as being "off balanced" and not as if the room is spinning. He also was experiencing lightheadedness, specifically when walking or going from sitting to walking. The symptoms have not completely resolved as they had the day prior. His , Lindsay, states that at one point he felt that his "brain would not tell his legs what to do." He denies any extremity weakness, numbness, or tingling. He has a generalized feeling of weakness starting today. Denies headache, vision changes, slurred speech, facial droop, or difficulties with finding words. He is not leaning to one side more than the other. No tinnitus or recent URI symptoms. He does experience cough and minimal phlegm production at his baseline, and has a history of COPD. He denies recent tick bites or exposures. Denies chest pain, SOB, palpitations, abdominal pain, N/V/D/C, LUTS, URI symptoms, numbness/tingling, F/C, syncope, or falls. He has never had this happen before. No known history of Afib/Aflutter. Notes that his mother has a history of a brain aneurysm. His notes that the paitent's blood pressures are usually 110s/80s, but that they have been more elevated today. He took all of his am medications. Has not eaten more than a few crackers today. 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 in ED. Please see Dr. Sims's attestation for adjustments/additions to treatment plan. Discharge Exam Constitutional WD/WN, vitals as above Neck trachea midline, no thyromegaly Respiratory normal respiratory effort, lungs clear to auscultation Cardiovascular RRR, no murmur, no edema Discharge Plan Discharge Items Patient Disposition: Home - Self-Care Reason For Visit: DIZZINESS Discharge Diagnosis: Dizziness Condition on Discharge: Fair Activity: Resume your previous activity Non-emergency contact: Primary Care Provider Call non-emergency contact if: you have any medication questions Follow-up/Referrals: Sahara Stevens MD [Primary Care Provider] - Diet: Heart Healthy Addtl Attending Provider Instructions: Thankfully you did not suffer a stroke. The etiology of your dizziness is likely from an inner ear pathology. Given history of nose bleeds, will recommend nasal saline spray. 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 Will recommend you have a repeat CTA of your head in 6 months. Will recommend a non urgent followup with Neurosurgery just to monitor this. This will likely need yearly repeat imaging. Again, this is an incidental finding and does not explain your symptoms. Pending Studies at Discharge: No Stand-Alone Forms: [facility], Smoking Cessation Medications and DC Order Prescriptions: Continued citalopram 40 mg tablet 40 mg PO DAILY Qty: 90 3RF atorvastatin [Lipitor] 40 mg tablet 40 mg PO QPM Qty: 90 3RF calcium carbonate [Calcium 600] 600 mg calcium (1,500 mg) Tablet 600 mg PO QAM cholecalciferol (vitamin D3) 50 mcg (2,000 unit) Tablet 50 mcg PO QAM losartan 100 mg tablet 100 mg PO QAM Incruse Ellipta 62.5 mcg/actuation blister with device 1 inh INHALATION DAILY Discharge Orders: Discharge Order (Routine); Ordered 11/04/24 Ordered By: Beau Mendoza Admission Data Admit Date/Time: 11/03/24 19:54 Attending Provider: Beau Mendoza Admit Provider: Lavinia Sims Primary Care Provider: Sahara Stevens Other Providers: Lavinia Sims Other Interventions: Discharge Summary Assessment (RN) Last Done: 11/04/24 17:48 Hospital Stay Data Consultations 11/03/24 19:00 ED Decision to Admit Stat Diagnostic Imagining Performed 11/03/24 16:32 CT angio head w con Stat CT angio neck with con Stat CT head/brain wo con Stat 11/03/24 19:55 MRI Brain [MR brain wo/w con] Stat Pending Results Patient Have Any Pending Studies at Discharge: No Discharge Instructions Given to Patient (Per Discharging Provider) Thankfully you did not suffer a stroke. The etiology of your dizziness is likely from an inner ear pathology. Given history of nose bleeds, will recommend nasal saline spray. 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 Will recommend you have a repeat CTA of your head in 6 months. Will recommend a non urgent followup with Neurosurgery just to monitor this. This will likely need yearly repeat imaging. Again, this is an incidental finding and does not explain your symptoms. Total Time Total Time Spent Total Time Spent (In Minutes): 32 Coding Level of Care Code 34402 INP/OBS DISCH >30 MIN Diagnoses Dizziness R42
== END 2024-11-04 17:50 | disposition home or self-care (01) ==
LOC: 2S 16:19 → ED 16:19 → SUATTDRO 19:54 → 2S 20:55